=== PATIENT | male | born 1960 | race Two or more races ===

== ENCOUNTER 2022-12-08 11:11 | Emergency (ER) | payer OTHER ==
[2022-12-08 11:16] VITALS: RESP 18; BMI 23.6
[2022-12-08] MEDS ORDERED: VANCOMYCIN HCL 1,500 MG in DEXTROSE 5%-WATER - 500 ML IVPB ONE (12:22)
[2022-12-08] MEDS ORDERED: PIPERACILLIN/TAZOB 4.5 GM 4.5 GM in DEXTROSE 5%-WATER 100 ML IVPB ONE (12:23)
[2022-12-08] MEDS ORDERED: PIPERACILLIN/TAZOB 4.5 GM 4.5 GM/100 ML BAG IVPB ONE (12:30)
[2022-12-08 13:36] LABS: BASO % 0.7 % (0-2.0); EOS % 3.6 % (0-4.5); HEMATOCRIT 36.9 % (35.4-49); HEMOGLOBIN 11.5 GM/dL (11.7-16.9); LYMPH % 24.1 % (8-40); MCH 27.3 pg (25.7-33.7); MCHC 31.2 g/dl (32.0-35.9); MEAN CELL VOLUME 87.5 fl (80-96); MEAN PLT VOLUME 8.7 fl (7.5-11.1); MONO % 9.3 % (3.8-10.2); NEUT % 62.3 % (42.8-82.8); PLATELET COUNT 498 10^3/uL (134-434); RBC 4.22 M/mm3 (4.00-5.60); RDW 19.3 % (11.9-15.9); WHITE BLOOD COUNT 11.5 K/mm3 (4.0-10.0)
[2022-12-08 13:43] LABS: INR 0.96 (0.83-1.09); PROTHROMBIN TIME (PATIENT) 11.1 SEC (9.7-13.0)
[2022-12-08 13:46] LABS: ACTIVATED PTT 31.4 SECONDS (25.2-36.5)
[2022-12-08 14:03] LABS: POTASSIUM 4.8 mmol/L (3.5-5.1)
[2022-12-08 14:05] LABS: ALBUMIN 3.3 g/dl (3.4-5.0); BLOOD UREA NITROGEN 23.3 mg/dL (7-18); CALCIUM 8.7 mg/dL (8.5-10.1)
[2022-12-08 14:08] LABS: CREATININE 0.9 mg/dL (0.55-1.3)
[2022-12-08 14:10] LABS: BILIRUBIN,TOTAL 0.2 mg/dL (0.2-1); TOT PROT 7.9 g/dl (6.4-8.2)
[2022-12-08 14:16] LABS: ERYTHROCYTE SEDIMENTATION RATE 87 mm/hr (0-20)
[2022-12-08 15:36] VITALS: BP 139/54; PULSE 87; TEMP 97.2
[2022-12-08] MEDS ORDERED: COLLAGENASE CLOSTRIDIUM HIST. 30 GRAMS TUBE TP SCH (16:00)
== END 2022-12-08 16:36 | disposition left against medical advice (07) ==
LOC: JER 11:11
DX: E11.621 Type 2 diabetes mellitus with foot ulcer (principal); L97.829 Non-pressure chronic ulcer of other part of left lower leg with unspecified severity; E11.69 Type 2 diabetes mellitus with other specified complication; M86.172 Other acute osteomyelitis, left ankle and foot
CPT/HCPCS: 36415; 73630-TC-LT; 80053; 85025; 85610; 85651; 85730; 86140; 86850; 86900; 86901; 87040; 87070; 87186; 87205; 93005; 93010; 99285-25; G0463-25